=== PATIENT | male | born 1950 | race Caucasian/White ===

== ENCOUNTER → 2021-11-03 14:01 | Outpatient (CLI) | payer MEDICARE, SELFPAY ==
--- NOTE | ~2021-11-03 | US_ITS ---
US scrotum doppler INDICATION: Left testicular lump TECHNIQUE: Testicular sonogram utilizing grayscale and color Doppler FINDINGS: There are small bilateral testicular cysts both measuring 3 mm. The left testicular cyst co rresponds to the area of palpable concern. The right testes measures 3.5 x 1.9 x 3.3 cm centimeters, and the left testis measures 4 x 2.1 x 2.3 cm cm. There is normal vascular flow to both testes. The right and left epididymides appear normal. There is a small left IMPRESSION: 1. Small bilateral testicular cysts measuring 3 mm. Reviewed, dictated and finalized at location A.
== END ==
PROVIDERS: PCP Nurse Practitioner Family; Visit Provider Nurse Practitioner Family
DX: N45.1 Epididymitis (principal); N44.2 Benign cyst of testis
CPT/HCPCS: 76870; 93976

== ENCOUNTER 2023-10-14 13:39 | Outpatient (CLI) | payer OTHER, MEDICARE, SELFPAY ==
--- NOTE | ~2023-10-14 | XR_ITS ---
XR hand RT min 3V Ordering provider: Jason Montano NP History: . M65.321 - Trigger finger, right index finger PAIN X 1 MONTH . Comparison: None. FINDINGS: BONES: No acute fracture or dislocation. JOINT SPACES: Normal. SOFT TISSUES: Normal. IMPRESSION: No acute osseous abnormality right hand. Reviewed, dictated and finalized at location A.
== END 2023-10-14 13:40 | disposition home or self-care (01) ==
LOC: ANHIMG 13:42
PROVIDERS: PCP Family Medicine
DX: M65.321 Trigger finger, right index finger (principal); R68.89 Other general symptoms and signs; M24.80 Other specific joint derangements of unspecified joint, not elsewhere classified
CPT/HCPCS: 73130

== ENCOUNTER 2024-02-11 14:16 | Outpatient (CLI) | payer MEDICARE, SELFPAY ==
--- NOTE | ~2024-02-11 | XR_ITS ---
CHEST RADIOGRAPH, PA AND LATERAL CLINICAL HISTORY: R09.89 - Other specified symptoms and signs involving the... . COMPARISON: 08/11/2010 TECHNIQUE: PA and lateral views of the chest. FINDINGS The cardiomediastinal silhouette is unremarkable. The lungs are clear. Visualized osseous structures and soft tissues are unremarkable. IMPRESSION: No focal infiltrate or effusion. Reviewed, dictated and finalized at location A. 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
== END 2024-02-11 14:17 | disposition home or self-care (01) ==
PROVIDERS: PCP Family Medicine; Visit Provider Family Medicine
DX: R09.89 Other specified symptoms and signs involving the circulatory and respiratory systems (principal)
CPT/HCPCS: 71046

== ENCOUNTER 2024-07-14 03:35 | Day surgery (SDC) | payer OTHER, MEDICARE, SELFPAY ==
[2024-04-28 11:16] VITALS: BMI 26.6
[2024-07-02 13:20] VITALS: BMI 26.6
--- OUTSIDE RECORDS SUMMARY | 2024-07-14 03:38 | XMS_ITS | Continuity of Care Document ---
Author Organization [facility] Address [address] [place] [address] [place] [address] Phone Care Team Providers Care Supervisor Locomotive Name Role Phone Mitchel Smith Unavailable Unavailable Procedures Procedure Date Eye Exam & Treatment Refraction Eye Exam & Treatment Refraction Advance Directives Directive Yes / No Effective Date File Name No Information Encounters Encounter Description Practice Location Reason(s) For Visit Diagnoses Date Provider Providers Copied on Encounter [facility], [address] [place] [address] [address], [place], [place], [id number], tel:[phone] [facility] No Information [address] [facility] [facility] [address] , [address], [place], [place], [facility], . tel:[phone] [facility], [address] [place] [address] [address], [place], [place], [id number], tel:[phone] [facility] No Information [address] [facility] , [address], [place], [address], [place]. tel:[phone] Family History Family Member Type Diagnosis Age At Onset No Information Payers Payer name Insurance type Covered libertarian ID Authoriza tikarthik(s) [employer] SOI CI [id number] Social History Type Description Quantity Date Captured Comments Sex Male Smoking Status No Information Chief Complaint And Reason For Visit No Information Reason For Referral Reason For Referral No Information History Of Present Illness Encounter Date Complaint History Of Prese nt Illness No Information Functional Status Date Functional Assessmen t No Information Instructions Date Instruction Additional Infor mation No Information Assessments Type Assessment Date No Information Patient Care Teams Name Effective Dates (start - stop) Status Members No Information
[2024-07-14 09:57] VITALS: BP 118/66; PULSE 89; RESP 16; TEMP 36.2; O2SAT 97; BMI 26.4
[2024-07-14] MEDS: LACTATED RINGERS 1,000 ML 150 ML IV CONT (10:06)
--- NOTE | 2024-07-14 10:09 | WPDANESEPPF ---
Anes - Initial Pre Proc Eval Procedure: Operation Date: 07/14/24 11:30 Proposed Procedures p Colonoscopy - Toby Wyatt MD Date/Time: 07/14/24 10:09 Surgeon: Toby Wyatt MD Pre Op Diagnosis: Personal hx of colon polyps Patient Data Age: 74 Gender: M Height: 1.68 m Weight: 74.3 kg Last Vital Signs Temp 36.2 C L 07/14/24 09:57 Pulse 89 07/14/24 09:57 Resp 16 07/14/24 09:57 BP 118/66 07/14/24 09:57 Pulse Ox 97 07/14/24 09:57 O2 Del Method Room Air 07/14/24 09:57 Allergies Allergy/AdvReac Type Severity Reaction Status Date / Time No Known Allergies Allergy Verified 07/14/24 09:55 Home Medications ?Medication ?Instructions ?Recorded ?Confirmed ?Type sildenafil 100 mg tablet (Viagra) 100 mg PO DAILY PRN sexual 05/24/22 07/02/24 Rx activity #15 tabs cholecalciferol (vitamin D3) 125 125 mcg PO DAILY #90 caps 04/15/23 07/14/24 Rx mcg (5,000 unit) capsule mupirocin 2 % topical ointment 1 applic topical .COMPLEX #44 grams 08/21/23 07/14/24 Rx simvastatin 10 mg tablet 10 mg PO QPM #90 tabs 02/01/24 07/14/24 Rx metoprolol succinate 25 mg 25 mg PO DAILY #90 tabs 03/31/24 07/14/24 Rx tablet,extended release 24 hr sertraline 100 mg tablet 100 mg PO DAILY #90 tabs 03/31/24 07/14/24 Rx amlodipine 10 mg tablet See Rx Instructions .Route 05/02/24 07/14/24 Rx .COMPLEX #90 tabs lisinopril 20 See Rx Instructions .Route 05/02/24 07/14/24 Rx mg-hydrochlorothiazide 12.5 mg .COMPLEX #90 tabs tablet cyclobenzaprine 10 mg tablet 10 mg PO TID #60 tabs 06/01/24 07/02/24 Rx hydrocodone 5 mg-acetaminophen 325 1 tablet PO Q6H PRN pain #100 tabs 07/02/24 07/14/24 Rx mg tablet Patient hx anesthesia problems: none Family hx anesthesia problems: none Results Review: All pre-operative results and documents have been reviewed as part of the pre-operative evaluation. [facility] Past Medical History Medical History Unintended weight loss Skin eruption COVID-19 Epistaxis Benign cyst of both testicles Hair abnormality Acute epididymitis Dermatitis Erectile dysfunction Degenerative lumbar disc BMI 29.0-29.9,adult Brain aneurysm Chronic low back pain without sciatica Depression Anxiety Essential hypertension, benign Hyperglycemia Narcotic dependence Vitamin D deficiency Surgical History Surgical History S/P clamping of cerebral aneurysm Hx of spinal surgery Family History Family History Father , 51 Acute myocardial infarction, Onset Age: 51 Hyperglycemia Hypertension Mother , alzheimer's Breast cancer Alzheimer's disease Sibling Diabetes mellitus Agent orange exposure Other Family history of Alzheimer's disease Family history of malignant neoplasm Social History Social History Years smoked: 30 Smoking status: Former smoker Tobacco type: cigarettes Second hand tobacco smoke exposure: No Smoking end date: 03/25/16 Alcohol intake: current Alcohol use details: A couple times yearly Substance use: current Substance use type: marijuana Other substance usage details: gummies for back pain. Last use: 5 days ago Do You Feel Safe in your Home?: Yes Lack of Transportation: No Lack of Food: Never True Current Housing: I Have Housing Concerned About Future Housing: No Difficulty Paying Gas/Electric Bills: No Difficulty Paying for Meds: No Currently Unemployed: No Education: High School Diploma/GED Difficulty w/ Childcare or Family Care: No Living arrangements: alone Occupation/Education: retired Additional occupation/education comments: [employer]. Gender identity (if verbalized by the patient): Male Spiritual care concerns: No Anes - Eval Final PreProcedure Day of Procedure 07/14/24 10:09 Patient weight: overweight Heart: regular rate and rhythm Lungs: clear to auscultation Airway: Mallampati scale class II Neurological: alert and oriented Last oral intake: >/= 8 hours ASA classification: III Emergent: no Anesthetic plan: proceed Anesthesia type and monitoring: general GIVS and standard monitoring Results Review: All pre-operative results and documents have been reviewed as part of the pre-operative evaluation. Informed Consent: The patient's anesthetic plan and its attendant risks and benefits were discussed with the patient/family/POA. Questions were solicited and answers provided to the satisfaction of the patient/family/POA.
--- NOTE | 2024-07-14 10:40 | P.HP_ITS ---
History of Present Illness History of Present Illness Consent: Risks, benefits, and alternatives have been discussed and questions answered. Patient agrees to proceed with procedure. Chief complaint: Personal hx of colon polyps Narrative: Sher Daniels is a 74 year old male with history of colon polyp, last colonoscopy 2019 Review of Systems Review of Systems: All systems reviewed & are unremarkable except as noted in HPI and below PMFSH Past Medical History Medical History Unintended weight loss Skin eruption COVID-19 Epistaxis Benign cyst of both testicles Hair abnormality Acute epididymitis Dermatitis Erectile dysfunction Degenerative lumbar disc BMI 29.0-29.9,adult Brain aneurysm Chronic low back pain without sciatica Depression Anxiety Essential hypertension, benign Hyperglycemia Narcotic dependence Vitamin D deficiency Surgical History Surgical History S/P clamping of cerebral aneurysm Hx of spinal surgery Family History Family History Father , 51 Acute myocardial infarction, Onset Age: 51 Hyperglycemia Hypertension Mother , alzheimer's Breast cancer Alzheimer's disease Sibling Diabetes mellitus Agent orange exposure Other Family history of Alzheimer's disease Family history of malignant neoplasm Social History Social History Years smoked: 30 Smoking status: Former smoker Tobacco type: cigarettes Second hand tobacco smoke exposure: No Smoking end date: 03/25/16 Alcohol intake: current Alcohol use details: A couple times yearly Substance use: current Substance use type: marijuana Other substance usage details: gummies for back pain. Last use: 5 days ago Do You Feel Safe in your Home?: Yes Lack of Transportation: No Lack of Food: Never True Current Housing: I Have Housing Concerned About Future Housing: No Difficulty Paying Gas/Electric Bills: No Difficulty Paying for Meds: No Currently Unemployed: No Education: High School Diploma/GED Difficulty w/ Childcare or Family Care: No Living arrangements: alone Occupation/Education: retired Additional occupation/education comments: [employer] service. Gender identity (if verbalized by the patient): Male Spiritual care concerns: No Meds Home Medications and Allergies Home Medications ?Medication ?Instructions ?Recorded ?Confirmed ?Type sildenafil 100 mg tablet (Viagra) 100 mg PO DAILY PRN sexual 05/24/22 07/02/24 Rx activity #15 tabs cholecalciferol (vitamin D3) 125 125 mcg PO DAILY #90 caps 04/15/23 07/14/24 Rx mcg (5,000 unit) capsule mupirocin 2 % topical ointment 1 applic topical .COMPLEX #44 grams 08/21/23 07/14/24 Rx simvastatin 10 mg tablet 10 mg PO QPM #90 tabs 02/01/24 07/14/24 Rx metoprolol succinate 25 mg 25 mg PO DAILY #90 tabs 03/31/24 07/14/24 Rx tablet,extended release 24 hr sertraline 100 mg tablet 100 mg PO DAILY #90 tabs 03/31/24 07/14/24 Rx amlodipine 10 mg tablet See Rx Instructions .Route 05/02/24 07/14/24 Rx .COMPLEX #90 tabs lisinopril 20 See Rx Instructions .Route 05/02/24 07/14/24 Rx mg-hydrochlorothiazide 12.5 mg .COMPLEX #90 tabs tablet cyclobenzaprine 10 mg tablet 10 mg PO TID #60 tabs 06/01/24 07/02/24 Rx hydrocodone 5 mg-acetaminophen 325 1 tablet PO Q6H PRN pain #100 tabs 07/02/24 07/14/24 Rx mg tablet Allergies Allergy/AdvReac Type Severity Reaction Status Date / Time No Known Allergies Allergy Verified 07/14/24 09:55 Vital Signs Vital Signs - 24 hr 07/14/24 09:57 Temperature 97.2 F L Pulse Rate 89 Respiratory Rate 16 Blood Pressure 118/66 Pulse Oximetry 97 Oxygen Delivery Room Air Exam Const: General: comfortable and no acute distress HENMT: Face/Nose/Sinus: Normal nares present Eyes: General: appearance normal, both eyes and all related structures Neck: Neck: no JVD Resp: Auscultation: clear to auscultation bilaterally Cardio: Rate: regular rate Rhythm: regular rhythm GI: Inspection: non-distended GI Palp: Yes Soft to palpation Skin: General skin exam: normal color Neuro: Speech: normal speech Extrem: General: normal to inspection Psych: Mental Status: mental status grossly normal Assessment and Plan Assessment and plan (1) Colon polyp: Qualifiers: Colon polyp type: unspecified Colon location: unspecified part of colon Qualified Code(s): Jeannine63.5 - Polyp of colon Code(s): K63.5 - Polyp of colon Status: Acute Assessment and Plan: colonoscopy
[2024-07-14 10:55] VITALS: BP 88/48; PULSE 74; RESP 13; O2SAT 97
[2024-07-14 11:05] VITALS: BP 88/53; PULSE 69; RESP 13; O2SAT 98
[2024-07-14 11:15] VITALS: BP 126/65; PULSE 69; RESP 21; O2SAT 100
== END 2024-07-14 11:52 | disposition home or self-care (01) ==
PROVIDERS: PCP Family Medicine; Visit Provider Internal Medicine Gastroenterology
PROC: 0DJD8ZZ Inspection of Lower Intestinal Tract, Via Natural or Artificial Opening Endoscopic (ICD-10-PCS; CPT 45378; principal; 2024-07-14 11:30)
DX: Z12.11 Encounter for screening for malignant neoplasm of colon (principal); D12.2 Benign neoplasm of ascending colon; D12.3 Benign neoplasm of transverse colon; K57.30 Diverticulosis of large intestine without perforation or abscess without bleeding; Z87.891 Personal history of nicotine dependence; F12.90 Cannabis use, unspecified, uncomplicated
CPT/HCPCS: 45385; 88305; J2003; J2704; J7120